=== PATIENT | female | born 1985 | race Caucasian/White ===

== ENCOUNTER → 2017-06-25 07:02 | Outpatient (CLI) | payer SELFPAY ==
--- NOTE | 2017-06-25 10:00 | MRI_ITS ---
STUDY: MRI BRAIN WITH AND WITHOUT CONTRAST REASON FOR EXAM: Female, 31 years old. Trigeminal neuralgia with bilateral ear and jaw pain (right greater than left) x 2 years, with a history of Lyme's disease. TECHNIQUE: Standardized multiplanar fat and water weighted pulse sequences were obtained. 6 ml of Gadavist contrast material was administered intravenously for the contrast portion of the examination. COMPARISON: None. FINDINGS: Normal size of the ventricles and extra-axial spaces for the patient's age. Normal white matter tracts of the supratentorial brain. Normal valeriy and normal root entry zones of cranial nerve V (axial T2 series 5, image 8; axial FSPGR series 13, images 92-93; coronal T2 FSE series 8, images 14-15). There is no demonstrated vascular compression. There is no enhancement of the trigeminal nerve. There is no demonstrated enhancement of either the V2 or V3 branches of the trigeminal nerve. The region of the foramina of ovale is normal. There is no atrophy of the muscles of mastication. The region of the foramen ovale appears normal. Normal bilateral internal auditory canals and cerebellopontine angle cisterns. There is no vestibular schwannoma. The valeriy is normal without a demonstrated mass lesion or demyelinating process. There is no evidence for recent intracranial ischemia or other cause of cytotoxic edema on diffusion weighted imaging (DWI). 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 A dedicated MRI of the TMJs would be necessary for evaluation of recapture in the open mouth position. Normal bilateral basal ganglia. Normal thalami. There is no extra-axial fluid accumulation. Normal flow voids within the major intracranial circulation suggesting patency by spin echo criteria. Normal venous enhancement. There is no enhancing intra-axial or extra-axial abnormality. Normal sella turcica, pituitary gland, infundibular stalk, optic chiasm and hypothalamus. Normal tectal plate and pineal gland. Normal midbrain, valeriy and medulla. Normal cerebellum. Normal basal cisterns. Normal bilateral temporal bones. No demonstrated orbital abnormality, within the constraints of a routine brain study. Normal visualized paranasal sinuses. Normal calvarium and skull base. Normal visualized soft tissue structures. Normal visualized upper cervical spine. MRI/Brain W/WO Contrast IMPRESSION: 1. No demonstrated vascular loop impingement upon the root entry zone of the V cranial nerve. No demonstrated abnormality of the V2 and V3 branches of the trigeminal nerve. 2. Normal cerebellopontine angle cistern and internal auditory canals. 3. Limited demonstration of the temporomandibular joints demonstrates an internal derangement with complete anterior dislocation the bilateral menisci of the TMJs. A dedicated MRI of the TMJ's with open and closed mouth views would be necessary for evaluation of recapture of the menisci in the open-mouth position. 4. Otherwise, normal MRI of the brain. Electronically Signed: Pedro Pickard DO at 12:07 EST Tel , Service support ,
--- NOTE | 2017-06-28 14:13 | EEG ---
- Electroencephalogram Date of service 06/25/2017 History EEG is being done in this 31 yr F to rule out seizures EEG Description: This is an 18 channel EEG with 10-20 lead placement system. Bipolar montages, Referential and Circumferential montages were reviewed. Photic stimulation and Hyperventilation were performed. The posterior dominant background rhythm is 10 HZ synchronous, symmetric, reacting to eye opening and closing. Photo stimulation elicited normal driving response but no abnormal photoparoxysmal response, Hyperventilation did not elicit any abnormal photoparoxysmal response. Sleep was identified. The background rhythm is normal. There was no epileptiform discharges or electrographic seizures noted during this recording. EEG Interpretation This is a normal awake and asleep EEG. There is no epileptiform discharges or electrographic seizures noted during the record.
== END ==
PROVIDERS: Visit Provider Psychiatry & Neurology Clinical Neurophysiology
DX: G50.0 Trigeminal neuralgia (principal); R94.01 Abnormal electroencephalogram [EEG]
CPT/HCPCS: 70553; 95819; A9585

== ENCOUNTER 2019-05-14 11:52 | Emergency (ER) | payer OTHER, SELFPAY ==
[2016-07-24 13:01] VITALS: BMI 17.6
[2019-05-14 11:54] VITALS: BP 102/56; PULSE 73; PULSE 77; RESP 16; RESP 18; TEMP 36.9; O2SAT 100; BMI 18.1
--- NOTE | 2019-05-14 12:59 | CT_ITS ---
STUDY: CT BRAIN WITHOUT CONTRAST REASON FOR EXAM: Female, 33 years old. PT FELL YESTERDAY, SWOLLEN LIP, SORE JAW RADIATION DOSAGE (If Supplied By Facility): CTDIvol = ( 44.99 ) mGy, DLP = ( 779.24 ) mGycm TECHNIQUE: Transaxial CT imaging of the brain was performed without administration of intravenous contrast material. Individualized dose optimization techniques were used for this CT. COMPARISON: No relevant priors. FINDINGS: Normal soft tissue structures. Normal calvarium. Normal size ventricles and extra-axial spaces for the patient''s age. Normal white matter tracts of the cerebral hemispheres. Normal basal ganglia and thalami. Normal brainstem. Normal cerebellum. There is no intracranial hemorrhage. There are no findings of an acute ischemic infarction. Normal visualized paranasal sinuses. CT/Brain/Head without Contrast IMPRESSION: No acute intracranial hemorrhage or mass effect. Electronically Signed: Dani Lara MD ([place]) at 15:05 EST , Service support ,
--- NOTE | 2019-05-14 12:59 | CT_ITS ---
STUDY: CT CERVICAL SPINE WITHOUT CONTRAST REASON FOR EXAM: Female, 33 years old. PT FELL YESTERDAY, SWOLLEN LIP, SORE JAW RADIATION DOSAGE (If Supplied By Facility): CTDIvol = ( 29.38 ) mGy, DLP = ( 569.49 ) mGycm TECHNIQUE: High resolution transaxial imaging was performed without contrast material. Sagittal and coronal images were reconstructed. Individualized dose optimization techniques were used for this CT. COMPARISON: None FINDINGS: Normal craniovertebral junction. Normal anterior atlantoaxial articulation. Normal odontoid process. Normal cervical lordosis. Normal vertebral bodies and posterior osseous elements. C2-3: Normal endplates. Normal disc height and morphology. Normal central canal and intervertebral neuroforamina. C3-4: Normal endplates. Normal disc height and morphology. Normal central canal and intervertebral neuroforamina. C4-5: Normal endplates. Normal disc height and morphology. Normal central canal and intervertebral neuroforamina. C5-6: Normal endplates. Normal disc height and morphology. Normal central canal and intervertebral neuroforamina. C6-7: Normal endplates. Normal disc height and morphology. Normal central canal and intervertebral neuroforamina. C7-T1: Normal endplates. Normal disc height and morphology. Normal central canal and intervertebral neuroforamina. Normal visualized soft tissue structures. CT/Spine Cervical without Contras IMPRESSION: No cervical spine fracture or traumatic subluxation. Electronically Signed: Dani Lara MD ([place]) at 15:14 EST , Service support ,
--- NOTE | 2019-05-14 12:59 | CT_ITS ---
STUDY: CT FACIAL BONES WITHOUT CONTRAST REASON FOR EXAM: Female, 33 years old. PT FELL YESTERDAY, SWOLLEN LIP, SORE JAW RADIATION DOSAGE (If Supplied By Facility): CTDIvol = ( 11.84 ) mGy, DLP = ( 265.42 ) mGycm TECHNIQUE: The patient was scanned in a multi detector CT scanner. Sagittal and coronal images were reconstructed. Individualized dose optimization techniques were used for this CT. COMPARISON: None. FINDINGS: There is soft tissue swelling of the upper lip. A left central central incisor is absent. There is a longitudinal/coronal fracture of the anterior maxilla extending vertically to the nasal spine (sagittal image 71). The fracture line extends to the apex of the right central incisor (coronal image 26) and the left lateral incisor (image 26). The mandible is intact. Normal orbital patel and orbital contents. Normal nasal bones. Normal facial bones. Normal visualized paranasal sinuses. CT/Sinus/Facial Bone IMPRESSION: 1. Nondisplaced coronal fracture of the anterior maxilla extending to the base of the anterior nasal spine. Fracture extends to the apices of the right central and left lateral incisor teeth. Absent left central incisor tooth. Electronically Signed: Dani Lara MD ([place]) at 15:09 EST , Service support ,
--- NOTE | 2019-05-14 13:01 | EKG12_ITS ---
Test Reason : DYSRHYTHMIA Blood Pressure : / mmHG Vent. Rate : 068 BPM Atrial Rate : 068 BPM P-R Int : 130 ms QRS Dur : 078 ms QT Int : 356 ms P-R-T Axes : 057 056 043 degrees QTc Int : 378 ms Normal sinus rhythm with sinus arrhythmia Normal ECG Confirmed by MIKE APPLE, ZACK ([id number]), clinical editor EMIR COOK ([id number]) on 05/16/2019 9:41:28 AM Referred By: Confirmed By:ZACK MCKEON MD
[2019-05-14 13:29] LABS: Absolute Lymphocyte Count 1.74 X10^3/uL (0.83-4.51); Absolute Neutrophil Count 5.8 X10^3/uL (2.0-7.7); Basophil# 0.02 X10^3/uL; Basophil% 0.2 % (0-1); Eosinophil# 0.07 X10^3/uL; Eosinophils% 0.9 % (0-5); Hematocrit 40.2 % (37-47); Lymphocyte # 1.74 X10^3/ul (4.0); Lymphocyte % 21.5 % (19-41); Mean Corp Hgb Conc 32.3 g/dL (32-36); Mean Corpuscular Volume 89.7 fL (81-99); Mean Platelet Vol. 9.7 fl (6.2-12.0); Monocyte# 0.48 X10^3/uL; Monocyte% 5.9 % (0-10); NRBC Flagged by Analyzer 0 % (0-5); Neutrophil # 5.77 X10^3/uL (2.7-7.7); Neutrophil % 71.3 % (47-70); Platelet Count 255 K/mm3 (150-450); RBC Distribution Width CV 13.7 % (11.6-14.6); RBC Distribution Width SD 44.9 fl (35.1-43.9); Red Blood Count 4.48 M/mm3 (4.2-5.4); White Blood Count 8.1 K/mm3 (4.4-11.0)
[2019-05-14 13:36] LABS: Internal QC Validated? YES +Cl - CLEAR BKGD; Pregnancy, Serum, hCG Quali. NEGATIVE Negative
[2019-05-14 13:43] LABS: Anion Gap 4 (5-15); BUN 11 mg/dL (7-18); BUN/Creat Ratio 14.3 RATIO (10-20); Chloride 109 mmol/L (98-107); Creatinine, Serum 0.77 mg/dL (0.55-1.02); EST Glomerular Filtration Rate 93 mL/min (>60); Est Glom Filt Rate - Afr Amer 112 mL/min (>60); Estimated Creatinine Clearance 80.35 ml/min; Glucose 82 mg/dL (74-106); Potassium 3.9 mmol/L (3.5-5.1); Sodium Level 139 mmol/L (136-145)
[2019-05-14 13:53] VITALS: BP 110/67; PULSE 74; RESP 14; O2SAT 100
--- NOTE | 2019-05-14 14:15 | RAD_ITS ---
STUDY: X-RAY CHEST REASON FOR EXAM: Female, 33 years old. SOB, PAIN S/P FALL DOWN STAIRS 1 DAY AGO TECHNIQUE: PA and lateral views of the chest. COMPARISON: None. FINDINGS: EKG leads project over the chest. The lungs are clear and expanded. There is no demonstrated pleural abnormality. Normal size heart. Normal mediastinum and carol. Normal visualized pulmonary arteries. Normal visualized aortic arch and descending thoracic aorta. Normal visualized thoracic spine. Normal visualized ribs, clavicles, and shoulders. There is no demonstrated abnormality of the visualized soft tissue structures of the upper abdomen. RAD/Chest PA and Lateral IMPRESSION: Nonacute x-ray examination of the chest. Electronically Signed: Dani Lara MD ([place]) at 15:14 EST , Service support ,
--- NOTE | 2019-05-14 14:20 | RAD_ITS ---
STUDY: X-RAY - RIGHT HAND REASON FOR EXAM: Female, 33 years old. PAIN S/P FALL DOWN STAIRS 1 DAY AGO TECHNIQUE: 3 view(s) of the hand. COMPARISON: None. FINDINGS: Normal radiocarpal articulation. Normal distal radioulnar joint. Normal visualized carpal bones. Normal carpal articulations Normal carpometacarpal articulation of the thumb. Normal second through fifth carpometacarpal joints. Normal metacarpi. Normal metacarpophalangeal joint of the thumb. Normal interphalangeal joint of the thumb. Normal proximal and distal phalanges of the thumb. Normal metacarpophalangeal joints of the second through fifth fingers. Normal proximal and distal interphalangeal joints of the second through fifth fingers. Normal phalanges of the second through fifth fingers. The soft tissue structures are unremarkable. RAD/Hand Min 3 Views IMPRESSION: No fracture or malalignment. Electronically Signed: Dani Lara MD ([place]) at 15:15 EST , Service support ,
--- NOTE | 2019-05-14 14:23 | RAD_ITS ---
STUDY: X-RAY - LEFT HAND REASON FOR EXAM: Female, 33 years old. PAIN S/P FALL DOWN STAIRS 1 DAY AGO TECHNIQUE: 3 view(s) of the hand. COMPARISON: None. FINDINGS: Normal radiocarpal articulation. Normal distal radioulnar joint. Normal visualized carpal bones. Normal carpal articulations Normal carpometacarpal articulation of the thumb. Normal second through fifth carpometacarpal joints. Normal metacarpi. Normal metacarpophalangeal joint of the thumb. Normal interphalangeal joint of the thumb. Normal proximal and distal phalanges of the thumb. Normal metacarpophalangeal joints of the second through fifth fingers. Normal proximal and distal interphalangeal joints of the second through fifth fingers. Normal phalanges of the second through fifth fingers. The soft tissue structures are unremarkable. RAD/Hand Min 3 Views IMPRESSION: No fracture or malalignment. Electronically Signed: Dani Lara MD ([place]) at 15:16 EST , Service support ,
--- NOTE | 2019-05-14 14:26 | RAD_ITS ---
STUDY: X-RAY - PELVIS AND RIGHT HIP REASON FOR EXAM: Female, 33 years old. PAIN S/P FALL DOWN STAIRS 1 DAY AGO TECHNIQUE: 3 views of the pelvis and hip. COMPARISON: None. FINDINGS: There is a non-specific bowel gas pattern. Normal visualized soft tissue structures. Normal bilateral iliac wings, sacroiliac joints and visualized sacrum. Normal bilateral superior and inferior pubic rami. Normal pubic symphysis. Normal bilateral ischial tuberosities. Normal visualized femoral head. Normal acetabulum. Normal hip joint. RAD/HIP, UNI W/ Pelvis 2-3 Views IMPRESSION: No fracture or malalignment. Electronically Signed: Dani Lara MD ([place]) at 15:17 EST , Service support ,
--- NOTE | 2019-05-14 14:29 | RAD_ITS ---
STUDY: X-RAY - LEFT KNEE REASON FOR EXAM: Female, 33 years old. PAIN S/P FALL DOWN STAIRS 1 DAY AGO TECHNIQUE: 4 view(s) of the knee. COMPARISON: None. FINDINGS: Sclerotic lesion of the distal femur with rings and arcs compatible with enchondroma or bone infarct sequela. Normal visualized proximal tibia and fibula. Normal proximal tibiofibular articulation. Normal medial femorotibial compartment. Normal lateral femorotibial compartment. Normal patellofemoral articulation. There is no demonstrated joint effusion. The soft tissue structures are unremarkable. RAD/Knee 4 or More Views IMPRESSION: No fracture or malalignment. Electronically Signed: Dani Lara MD ([place]) at 15:16 EST , Service support ,
--- NOTE | 2019-05-14 14:42 | ED.VIS.GEN ---
History of Present Illness Chief Complaint: Other, Pain/Inj Informant: Patient, Family Onset: Yesterday Narrative: Reportedly the patient was walking down the stairs and passed out resulting in fall. She states she remembers falling does not remember why. Before going on the stairs she states that she felt very poorly. She states that she is in very poor health having numerous medical problems but has difficulty telling me what they are. 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 She states that she takes some herbal remedies. When she came to on the floor she states there are numerous broken teeth and she saw a dentist they could but recommended that she be checked out. Today they came to the emergency room. She notes pain in the left knee right hip bilateral hands right shoulder face neck and head. Past Medical History - Allergies and Home Meds Allergies/Adverse Reactions: Allergies wheat Allergy (Verified 05/14/19 11:54) Unknown DAIRY Allergy (Uncoded 05/14/19 11:54) Unknown Primary Care Physician: Care Physician,No Primary [Primary Care Provider] - Smoking Status: Never smoker Review of Systems General: Denies: Chills, Fever, Sweats Eyes: Denies: Visual changes - bilaterally, Diplopia ENT: Reports: - - Patient reports numerous broken teeth and facial pain and swelling particularly on the right. Denies: Bilateral ear pain, Left ear pain, Right ear pain, Rhinorrhea, Sore throat Cardiovascular: Denies: Chest pain, Palpitations Respiratory: Denies: Dyspnea, Cough, Dyspnea on exertion Gastrointestinal: Denies: Abdominal pain, Nausea, Vomiting, Diarrhea, Melena, Hematochezia Genitourinary: Denies: Dysuria, Hematuria, Frequency Musculoskeletal: Reports: Neck pain, Extremity Pain. Denies: Back pain Skin: Denies: Rash, Wounds Neurological: Reports: Headache. Denies: Weakness, Numbness Physical Exam Vital Signs/Narrative: Vital Signs Temp Pulse Resp BP Pulse Ox 05/14/19 11:54 98.5 F 77 16 102/56 L 100 Inital Vital Signs reviewed: Yes General: Well nourished, Well developed, No Acute Distress Head: Normocephalic, Trauma Eyes: Perrl, EOMI ENT: Moist mucous membranes, No rhinorrhea, - - Patient has pain with attempting to open her mouth. There are numerous broken teeth. They are lip and facial abrasions. There is swelling along the right mandible with tenderness. Neck: Supple, - - Diffusely tender neck Cardiovascular: Regular rate, Regular rhythm, No murmurs Respiratory: No distress, CTA bilaterally, Chest nontender Abdomen: Soft, Nontender, Nondistended, Normal bowel sounds Back: Nontender, Normal Inspection Extremities: No edema, Tenderness - Tenderness of the anterior right shoulder which shows a small contusion, bilateral thenar eminence contusions, left knee tenderness without effusion or ligamentous instability. Right hip tenderness with contusion negative logroll Skin: Normal color, No rash Neurological: Alert, Oriented x3, Cranial nerves II-XII grossly intact, Normal Strength, Normal Sensation Psychological: Normal affect, Normal Mood Diagnostic/Tx/Re-eval - EKG Initial EKG Interpretation: Sinus Rhythm - Sinus rhythm at a rate of 68 without ectopy - Medical Decision Making X-rays of the bilateral hands, right hip and pelvis, chest, left knee, as well as CT of the brain cervical spine and sinus/facial bones were obtained. This demonstrated a fracture of the maxilla extending to the apices of the teeth to the anterior nasal spine. She received Toradol for pain. She would like something stronger than Tylenol at home. This is very reasonable and we can try some oxycodone. I will write for some Zofran. She will need to follow-up with plastic surgery. ED Disposition - Plan for ED Patient: Diagnosis: Multiple contusions, Maxillary fracture, Dental trauma Instructions: Facial Fracture Prescriptions: Oxycodone HCl/Acetaminophen [Percocet 5/325] 1 tab PO Q6H PRN PRN 5 Days #20 tab PRN Reason: Pain Prescription Printed Ondansetron [Zofran Odt] 4 mg PO Q6H PRN PRN #20 tab PRN Reason: Nausea Prescription Printed Referrals: Tenzin Rae MD [STAFF PHYSICIAN] - As soon as possible
[2019-05-14] MEDS: Ketorolac 30 MG/ML Syringe IV (14:49)
[2019-05-14 15:00] VITALS: BP 100/64; PULSE 57; RESP 16; O2SAT 100
[2019-05-14 16:05] VITALS: BP 108/64; PULSE 73; RESP 16; O2SAT 100
== END 2019-05-14 16:49 | disposition home or self-care (01) ==
PROVIDERS: Emergency Provider Emergency Medicine
DX: S02.401A Maxillary fracture, unspecified side, initial encounter for closed fracture (principal); S02.5XXA Fracture of tooth (traumatic), initial encounter for closed fracture; S40.011A Contusion of right shoulder, initial encounter; S60.222A Contusion of left hand, initial encounter; S60.221A Contusion of right hand, initial encounter; S70.01XA Contusion of right hip, initial encounter; W10.9XXA Fall (on) (from) unspecified stairs and steps, initial encounter; Y93.01 Activity, walking, marching and hiking; E72.12 Methylenetetrahydrofolate reductase deficiency
CPT/HCPCS: 70450; 70486; 71046; 72125; 73130; 73502; 73564; 80048; 84703; 85025; 93005; 96374; 99284; J7030; A4216